=== PATIENT | female | born 1940 | race Caucasian/White ===

== ENCOUNTER → 2017-04-30 | Outpatient (CLI) | payer MEDICARE ==
--- NOTE | 2017-04-30 13:10 | MM ---
Reason for exam: additional evaluation requested from prior study. Last mammogram was performed 1 year ago. History: Patient is postmenopausal and has history of breast cancer at age 51. Family history of breast cancer in daughter at age 52. Benign MG stereo VAD BX RT of the right breast, March 04, 2015. Lumpectomy of the left breast, 1993. Benign excisional biopsy of the right breast, 1991. Physical Findings: Nurse Summary: 1cm nodule in the right breast at 12-12:30 (nurse cordell). MG 3D Diag Mammo W/Cad EDWIN Bilateral CC and MLO view(s) were taken. Prior study comparison: April 29, 2016, bilateral MG 3d diag mammo w/cad EDWIN. January 15, 2015, mammogram, performed at [facility]. The breast tissue is heterogeneously dense. This may lower the sensitivity of mammography. No suspicious abnormality. Post therapy change on the left breast. No significant new findings when compared with previous films. These results were verbally communicated with the patient and result sheet given to the patient on 04/30/17. ASSESSMENT: Benign, BI-RAD 2 RECOMMENDATION: Routine screening mammogram of both breasts in 1 year.
--- NOTE | 2017-04-30 13:11 | USB ---
Reason for exam: additional evaluation requested from prior study. History: Patient is postmenopausal and has history of breast cancer at age 51. Family history of breast cancer in daughter at age 52. Benign MG stereo VAD BX RT of the right breast, March 04, 2015. Lumpectomy of the left breast, 1993. Benign excisional biopsy of the right breast, 1991. US Breast Limited RT Right breast ultrasound demonstrates no cystic or solid lesion seen. No sonographic abnormality. No cystic or solid masses. These results were verbally communicated with the patient and result sheet given to the patient on 04/30/17. ASSESSMENT: Negative, BI-RAD 1 RECOMMENDATION: Routine screening mammogram of both breasts in 1 year.
== END | disposition home or self-care (01) ==
LOC: RADMAMWWP 10:33
PROVIDERS: ATTEND Family Medicine
DX: R92.8 Other abnormal and inconclusive findings on diagnostic imaging of breast (principal); Z85.3 Personal history of malignant neoplasm of breast
CPT/HCPCS: 76642; G0204; G0279

== ENCOUNTER 2017-10-30 14:52 | Inpatient (IN) | payer MEDICARE ==
[2017-10-30 18:11] VITALS: BMI 22.2
[2017-10-30] MEDS ORDERED: NALOXONE 0.4 MG/ML 1 ML VIAL IV PRN (18:50)
[2017-10-30] MEDS ORDERED: HEPARIN SODIUM,PORCINE 5,000 UNIT/ML 1 ML VIAL IV ONE (18:54)
[2017-10-30] MEDS ORDERED: HEPARIN SODIUM,PORCINE 5,000 UNIT/ML 1 ML VIAL IV PRN (18:54)
[2017-10-30] MEDS ORDERED: HEPARIN SOD,PORK IN 0.45% NACL 25,000 UNIT in 0.45% NACL 1 500ML.BAG IV SCH (19:00)
--- NOTE | 2017-10-30 19:00 | P.HPIM ---
History of Present Illness 77-year-old pleasant female last started having symptoms of shortness of breath flulike symptoms about a week ago after which she was admitted to [facility] for treatment of influenza pneumonia patient was started on levofloxacin Tamiflu. Patient had elevated leukocytosis WBC count is coming down patient was also on steroids at the time. Patient was doing well until afternoon today patient went into atrial fibrillation. Patient presently doesn' t have any fever chills nausea vomiting patient denied any pressure like sensation palpitation facet of troponin is negative patient is going in and out of atrial fibrillation patient was given 20 mg of Cardizem followed by IV Cardizem drip patient is presently on 15 of Cardizem. Patient will be started on heparin drip. Patient I was having cough still has cough was having yellowish colored sputum at the time now whitish color. Review of Systems REVIEW OF SYSTEMS: CONSTITUTIONAL: No fever, no malaise, no fatigue. HEENT: No recent visual problems or hearing problems. Denied any sore throat. CARDIOVASCULAR: No chest pain, orthopnea, PND, no palpitations, no syncope. PULMONARY: As mentioned in HPI GASTROINTESTINAL: No diarrhea, no nausea, no vomiting, no abdominal pain. Normoactive bowel sounds. NEUROLOGICAL: No headaches, no weakness, no numbness. HEMATOLOGICAL: Denies any bleeding or petechiae. GENITOURINARY: Denies any burning micturition, frequency, or urgency. MUSCULOSKELETAL/RHEUMATOLOGICAL: Denies any joint pain, swelling, or any muscle pain. ENDOCRINE: Denies any polyuria or polydipsia. The rest of the 14-point review of systems is negative. Past Medical History Past Medical History: Asthma, Cancer, Hypertension, Pneumonia Additional Past Medical History / Comment(s): breast, 1994-chemo and radiation- lumpectomy. pneumonia 2016. Crohn's disease History of Any Multi-Drug Resistant Organisms: None Reported Past Surgical History: Hysterectomy, Tonsillectomy Additional Past Surgical History / Comment(s): lumpectomy Past Anesthesia/Blood Transfusion Reactions: Previous Problems w/ Anesthesia, Motion Sickness, Postoperative Nausea & Vomiting (PONV) Past Psychological History: No Psychological Hx Reported Smoking Status: Never smoker - Past Family History Father History Unknown: Yes Family Medical History: Myocardial Infarction (MD), Vascular Disorder Mother Family Medical History: Cancer Additional Family Medical History / Comment(s): of lung cancer Brother(s) Family Medical History: Cancer Additional Family Medical History / Comment(s): brother of lung cancer Sister(s) Additional Family Medical History / Comment(s): 3 sisters are healthy Medications and Allergies Home Medications Medication Instructions Recorded Confirmed Type Albuterol Inhaler [Ventolin Hfa 1 - 2 puff INHALATION Q6HR PRN 10/30/17 History Inhaler] Aspirin [Adult Low Dose Aspirin EC] 81 mg PO DAILY 10/30/17 10/30/17 History Beclomethasone Dipropionate [Qvar 1 puff INHALATION Q6HR PRN 10/30/17 10/30/17 History 80 mcg] Calcium Carbonate [Calcium] 1,200 mg PO DAILY 10/30/17 10/30/17 History Cholecalciferol [Vitamin D3] 1,000 unit PO DAILY 10/30/17 10/30/17 History Fluticasone Nasal [place] [Flonase 1 spray EA NOSTRIL DAILY 10/30/17 10/30/17 History Nasal [place]] L.acidoph,Paracasei, B.lactis 1 each PO BID 10/30/17 10/30/17 History [Probiotic] Levothyroxine Sodium [Synthroid] 75 mcg PO DAILY 10/30/17 10/30/17 History Lisinopril [Prinivil] 5 mg PO DAILY 10/30/17 10/30/17 History Omeprazole [PriLOSEC] 20 mg PO AC-BRKFST 10/30/17 10/30/17 History rOPINIRole HCL [Requip] 2 tab PO HS 10/30/17 10/30/17 History Allergies Allergy/AdvReac Type Severity Reaction Status Date / Time cefuroxime [From Ceftin] Allergy Rash/Hives Verified 10/30/17 17:48 Penicillins Allergy Anaphylaxis Verified 10/30/17 17:48 Physical Exam Vitals: Vital Signs Temp Pulse Resp BP Pulse Ox 10/30/17 17:45 99.0 F 92 18 134/63 95 10/30/17 17:30 99.0 F 88 18 134/63 95 Intake and Output 10/30/17 10/30/17 10/30/17 06:59 14:59 22:59 Other: Weight 53.5 kg PHYSICAL EXAMINATION: GENERAL: The patient is alert and oriented x3, not in any acute distress. Thin built HEENT: Pupils are round and equally reacting to light. EOMI. No scleral icterus. No conjunctival pallor. Normocephalic, atraumatic. No pharyngeal erythema. No thyromegaly. CARDIOVASCULAR: S1 and S2 present. No murmurs, rubs, or gallops. Sure whether patient has elevated JVD PULMONARY: Patient does have bronchospasm sounds predominantly in the right side decreased air entry into bilateral lung meza. ABDOMEN: Soft, nontender, nondistended, normoactive bowel sounds. No palpable organomegaly. MUSCULOSKELETAL: No joint swelling or deformity. EXTREMITIES: No cyanosis, clubbing, or pedal edema. NEUROLOGICAL: Gross neurological examination did not reveal any focal deficits. SKIN: No rashes. Thrombosis Risk Factor Assmnt - Choose All That Apply Each Factor Represents 1 point: History of: Other Risk Factors: Yes Each Risk Factor Represents 3 Points: Age 75 years or older Thrombosis Risk Factor Assessment Total Risk Factor Score: 4 Thrombosis Risk Factor Assessment Level: Moderate Risk Assessment and Plan Plan: -Atrial fibrillation with rapid ventricular rate: Patient was started on IV Cardizem, will be started on IV heparin as well. Echocardiogram will be obtain cardiology was consulted. 2 more troponins will be obtained -Sepsis secondary to influenza pneumonia which appeared to be improving -Acute hypoxic respiratory failure secondary to pneumonia which is also improving -Gastro-esophageal reflux disease -Hyperlipidemia -Hypertension: Hold off on TRINH inhibitor since patient is on Cardizem and expected to have blood pressure to go down. -Patient will need GI prophylaxis -Patient will not require any other DVT prophylaxis as patient is on IV heparin for atrial fibrillation -CODE STATUS full code
[2017-10-30] MEDS: DILTIAZEM 50 MG in SODIUM CHLORIDE 0.9% 40 ML IV SCH ×2 (19:30→22:50)
[2017-10-30] MEDS: BUDESONIDE 1 MG/2 ML NEBU INHALATION SCH (19:37)
[2017-10-30] MEDS: OSELTAMIVIR 75 MG CAP PO SCH (19:48)
[2017-10-30 19:57] LABS: HCT 34.6 % (34.0-46.0); HGB 10.8 gm/dL (11.4-16.0); MCH 28.5 pg (25.0-35.0); MCHC 31.2 g/dL (31.0-37.0); MCV 91.5 fL (80.0-100.0); Mean Platelet Volume 8.8; Platelet Count 269 k/uL (150-450); RBC 3.78 m/uL (3.80-5.40); RDW 14.3 % (11.5-15.5); WBC 12.3 k/uL (3.8-10.6)
[2017-10-30 20:02] LABS: INR 0.9 (<1.2)
[2017-10-30 20:03] LABS: Partial Thromboplastin Time 23.6 sec (22.0-30.0); Prothrombin Time 9.4 sec (9.0-12.0)
[2017-10-30 20:12] LABS: Lymphocytes # (M) 3.57 k/uL (1.0-4.8); Metamyelocytes # (M) 0.12 k/uL (0); Metamyelocytes % 1 %; Monocytes # (M) 0.12 k/uL (0-1.0); Neutrophils # (M) 8.49 k/uL (1.3-7.7); Neutrophils % (M) 69 %; Nucleated Red Blood Cells 0 /100 WBC (0-0); Total Cells Counted 100
[2017-10-31] MEDS: ALBUTEROL NEBULIZED 2.5 MG/3 ML INHALATION PRN ×4 (02:27→19:41)
[2017-10-31] MEDS: DILTIAZEM 50 MG in SODIUM CHLORIDE 0.9% 40 ML IV SCH ×3 (03:29→08:55)
[2017-10-31] MEDS: PANTOPRAZOLE 40 MG TABLET PO SCH (06:08)
--- NOTE | 2017-10-31 06:33 | XR ---
EXAMINATION TYPE: XR chest 1V DATE OF EXAM: 10/31/2017 HISTORY: CHF. REFERENCE: NONE. FINDINGS: The heart is mildly enlarged. There is mild vascular congestion without theresa edema. There is bilateral upper lobe airspace disease. There is a small left effusion. I suspect underlying COPD. IMPRESSION: 1. CARDIOMEGALY AND VASCULAR CONGESTION. 2. UPPER LOBE AIRSPACE DISEASE PRESENT BILATERALLY, WORSE ON THE RIGHT THAN THE LEFT. 3. I SUSPECT UNDERLYING COPD. 4. SMALL LEFT EFFUSION.
[2017-10-31 06:37] LABS: Prothrombin Time 10.1 sec (9.0-12.0)
[2017-10-31 06:43] LABS: Calcium 9.5 mg/dL (8.4-10.2); Magnesium 1.6 mg/dL (1.6-2.3); Potassium 3.8 mmol/L (3.5-5.1)
[2017-10-31 06:51] LABS: HCT 29.6 % (34.0-46.0); HGB 9.6 gm/dL (11.4-16.0); MCH 29.3 pg (25.0-35.0); MCHC 32.4 g/dL (31.0-37.0); MCV 90.2 fL (80.0-100.0); Mean Platelet Volume 8.9; Platelet Count 340 k/uL (150-450); RBC 3.28 m/uL (3.80-5.40); RDW 14.2 % (11.5-15.5); WBC 12.1 k/uL (3.8-10.6)
[2017-10-31 07:28] LABS: Band Neutrophils % 2 %; Lymphocytes # (M) 2.06 k/uL (1.0-4.8); Monocytes # (M) 1.69 k/uL (0-1.0); Myelocytes # (M) 0.36 k/uL (0); Myelocytes % 3 %; Neutrophils % (M) 65 %; Nucleated Red Blood Cells 0 /100 WBC (0-0); Total Cells Counted 200
[2017-10-31] MEDS: BUDESONIDE 1 MG/2 ML NEBU INHALATION SCH ×2 (08:43→19:39)
[2017-10-31] MEDS ORDERED: RIVAROXABAN 20 MG TAB PO ONE (09:15)
--- NOTE | 2017-10-31 09:18 | CONS ---
CONSULTATION Mrs. Matos is a 77-year-old female with a known history of hypertension, who a week ago started complaining of progressive dyspnea and cough. She was subsequently admitted to [facility] with influenza B and possible pneumonia. She was treated but yesterday had atrial fibrillation and subsequently transferred to [facility]. She is back in sinus mechanism at this time. The patient did not feel any significant palpitations at that time. She was having a cough and fever. She is starting to feel better. She has no chest discomfort. She had some peripheral edema while in the hospital, but not on a regular basis. She is active physically without any difficulty on a regular basis. She denies any prior history of ischemic heart disease of congestive heart failure. She has no history of PND, orthopnea, or peripheral edema. No dizziness or syncope. She had an episode of arrhythmia according to her about 2 years ago in the setting of pneumonia, although details of that arrhythmia is not clear to me. She had a CT scan of the chest that showed a no evidence of pulmonary embolism. Her coronary risk factors are positive for history of hypertension. She is non diabetic. Nonsmoker. No documented history of hyperlipidemia. MEDICATION: At home included lisinopril 5 mg daily, Prilosec, Ventolin, calcium carbonate, fluticasone, aspirin, levothyroxine 0.075 mg daily, ropinirole. REVIEW OF SYSTEMS: Respiratory system: She has a history of asthma and recent pneumonia. GI system : No recent GI bleeding. No peptic ulcer disease. She has history of ulcerative colitis. system: No dysuria, hematuria. Nervous system: No history of stroke or seizure. PHYSICAL EXAMINATION: 77-year-old female, alert, oriented, in no apparent distress. Blood pressure 127/60 with a heart rate in the 80s. HEAD: Normocephalic. Eyes sclerae anicteric. Neck good upstroke. No bruit. Lungs with few crackles noted bilaterally. HEART: Regular rate and rhythm S1, S2. No S3. No rub. ABDOMEN: Soft, nontender. No organomegaly. EXTREMITIES: No edema. LAB DATA: Revealed a hemoglobin of 9.6, BUN and creatinine of 13 and 0.7. Her troponin 0.043, 0.037. Her NT proBNP 3050. Her TSH is 4.07. Her EKG revealed a sinus mechanism with rare PVCs, normal axis, intervals, poor progression. IMPRESSION: 1. Pneumonia with influenza B. 2. Paroxysmal fibrillation, back in sinus mechanism. 3. History of hypertension. 4. Mild elevation of troponin, most likely reflecting a type 2 event. RECOMMENDATION: From the cardiac standpoint, I will stop her IV Cardizem and her IV heparin. I will switch her to oral Cardizem and anticoagulation. An echocardiogram with Doppler will be obtained. It is very likely that her atrial fibrillation is precipitated by her primary pulmonary event. Down the road, after recovery, she may improve benefit from further cardiac workup including a stress test at this time. We will continue on the present therapy. Thank you for this consult. We will follow with you. MMODL / IJN: [id number] / ELLI
[2017-10-31] MEDS: LEVOTHYROXINE 75 MCG TAB PO SCH (09:57)
[2017-10-31] MEDS: DILTIAZEM ORAL 30 MG TAB PO SCH ×3 (09:57→20:05)
[2017-10-31] MEDS: OSELTAMIVIR 75 MG CAP PO SCH ×2 (09:58→20:06)
[2017-10-31] MEDS ORDERED: Magnesium Replacement Protocol 1 EACH MISC MISCELLANE PRN (10:27)
[2017-10-31] MEDS: MAGNESIUM SULFATE-D5W PMX 1 GM in DEXTROSE/WATER 1 100ML.BAG IVPB SCH ×2 (12:11→13:07)
--- NOTE | 2017-10-31 14:06 | P.PN ---
Subjective 77-year-old female is being treated for influenza pneumonia, atrial fibrillation new onset, his BNP had BNP is elevated but cardiology doesn't believe patient has CHF at this time patient diffuse infiltrate is probably due to inflammation from influenza and it is a pneumonia bilateral much worse in the right side patient is on Tamiflu but not any other antibiotics patient was switched to oral anticoagulation and would Cardizem IV Cardizem and IV anti- correlation were discontinued. Pending echocardiogram mildly elevated troponin secondary to atrial fibrillation. And failed patient is feeling much better today. Constitutional: Denied any fatigue denied any fever. Cardio vascular: denied any chest pain, palpitations Gastrointestinal denied any nausea vomiting Pulmonary: Denied any shortness of breath cough Neurologic denied any new focal deficits Objective - Vital Signs Vital signs: Vital Signs Temp 98.2 F 10/31/17 12:11 Pulse 80 10/31/17 12:11 Resp 16 10/31/17 12:11 BP 166/75 10/31/17 12:11 Pulse Ox 94 L 10/31/17 12:11 Intake & Output 10/30/17 10/31/17 10/31/17 18:59 06:59 18:59 Intake Total 122.521 337.747 Output Total 100 Balance 122.521 237.747 Weight 53.5 kg 54.8 kg Intake: Intake, IV Titration 122.521 127.747 Amount Diltiazem 50 mg In Sodium 39.917 27.167 Chloride 0.9% 40 ml @ 15 MG/HR 15 mls/hr IV . Q3H20M MARI Rx#:[id number] Heparin Sod,Pork in 0.45% 82.604 100.58 NaCl 25,000 unit In 0.45 % NaCl 1 500ml.bag @ 12 UNITS/KG/HR 12.84 mls/hr IV .Q24H MARI Rx#: [id number] Oral 210 Output: Urine 100 Other: Voiding Method Toilet Toilet Toilet # Voids 2 # Bowel Movements 1 - Exam PHYSICAL EXAMINATION: GENERAL: The patient is alert and oriented x3, not in any acute distress. Thin built HEENT: Pupils are round and equally reacting to light. EOMI. No scleral icterus. No conjunctival pallor. Normocephalic, atraumatic. No pharyngeal erythema. No thyromegaly. CARDIOVASCULAR: S1 and S2 present. No murmurs, rubs, or gallops. no JVD PULMONARY: Patient does have bronchospasm sounds predominantly in the right side decreased air entry into bilateral lung meza. ABDOMEN: Soft, nontender, nondistended, normoactive bowel sounds. No palpable organomegaly. MUSCULOSKELETAL: No joint swelling or deformity. EXTREMITIES: No cyanosis, clubbing, or pedal edema. NEUROLOGICAL: Gross neurological examination did not reveal any focal deficits. SKIN: No rashes. - Labs CBC & Chem 7: 10/31/17 05:56 10/31/17 05:56 Labs: Abnormal Lab Results - Last 24 Hours (Table) 10/30/17 10/30/17 10/31/17 Range/Units 19:23 19:23 01:32 WBC 12.3 H (3.8-10.6) k/uL RBC 3.78 L (3.80-5.40) m/uL Hgb 10.8 L (11.4-16.0) gm/dL Hct (34.0-46.0) % Neutrophils # (Manual) 8.49 H (1.3-7.7) k/uL Monocytes # (Manual) (0-1.0) k/uL Metamyelocytes # (Man) 0.12 H (0) k/uL Myelocytes # (Manual) (0) k/uL APTT (22.0-30.0) sec Troponin I 0.043 H* 0.037 H* (0.000-0.034) ng/mL 10/31/17 10/31/17 Range/Units 01:32 05:56 WBC 12.1 H (3.8-10.6) k/uL RBC 3.28 L (3.80-5.40) m/uL Hgb 9.6 L (11.4-16.0) gm/dL Hct 29.6 L (34.0-46.0) % Neutrophils # (Manual) 8.10 H (1.3-7.7) k/uL Monocytes # (Manual) 1.69 H (0-1.0) k/uL Metamyelocytes # (Man) (0) k/uL Myelocytes # (Manual) 0.36 H (0) k/uL APTT 47.0 H (22.0-30.0) sec Troponin I (0.000-0.034) ng/mL Assessment and Plan Plan: -Atrial fibrillation with rapid ventricular rate: Patient is on oral Cardizem and oral anticoagulation -Sepsis secondary to influenza pneumonia which appeared to be improving -Acute hypoxic respiratory failure secondary to influenza pneumonia which is also improving -Gastro-esophageal reflux disease -Hyperlipidemia -Hypertension: Patient will be resumed on TRINH inhibitor and will continue Cardizem -Patient will need GI prophylaxis -Patient will not require any other DVT prophylaxis as patient is on IV heparin for atrial fibrillation -CODE STATUS full code
[2017-10-31] MEDS: sulfaSALAzine 500 MG TAB PO SCH (20:10)
[2017-11-01 05:59] LABS: HGB 9.3 gm/dL (11.4-16.0); MCH 28.9 pg (25.0-35.0); MCHC 32.1 g/dL (31.0-37.0); MCV 89.9 fL (80.0-100.0); Mean Platelet Volume 8.6; Platelet Count 372 k/uL (150-450); RBC 3.23 m/uL (3.80-5.40); RDW 14.1 % (11.5-15.5); WBC 9.6 k/uL (3.8-10.6)
[2017-11-01 06:15] LABS: Calcium 9.5 mg/dL (8.4-10.2); Potassium 3.9 mmol/L (3.5-5.1)
[2017-11-01] MEDS: LEVOTHYROXINE 75 MCG TAB PO SCH (06:36)
[2017-11-01] MEDS: PANTOPRAZOLE 40 MG TABLET PO SCH (06:36)
[2017-11-01 07:01] LABS: Band Neutrophils % 3 %; Eosinophils # (M) 0.29 k/uL (0-0.7); Lymphocytes # (M) 3.17 k/uL (1.0-4.8); Metamyelocytes # (M) 0.29 k/uL (0); Metamyelocytes % 3 %; Monocytes # (M) 0.96 k/uL (0-1.0); Myelocytes % 1 %; Neutrophils % (M) 49 %; Nucleated Red Blood Cells 0 /100 WBC (0-0); Total Cells Counted 200
[2017-11-01 07:02] LABS: Large Platelets Present; Polychromasia Present
[2017-11-01 07:03] LABS: Anisocytosis (M) Present
[2017-11-01 07:08] LABS: Poikilocytosis (M) Present
[2017-11-01] MEDS: BUDESONIDE 1 MG/2 ML NEBU INHALATION SCH (07:37)
[2017-11-01] MEDS: ALBUTEROL NEBULIZED 2.5 MG/3 ML INHALATION PRN ×2 (07:37→12:58)
[2017-11-01] MEDS: OSELTAMIVIR 75 MG CAP PO SCH (08:02)
[2017-11-01] MEDS: sulfaSALAzine 500 MG TAB PO SCH (08:03)
[2017-11-01] MEDS: DILTIAZEM ORAL 30 MG TAB PO SCH (08:04)
[2017-11-01 08:21] VITALS: TEMP 97.6
[2017-11-01] MEDS ORDERED: LISINOPRIL 5 MG TAB PO SCH (09:00)
--- NOTE | 2017-11-01 09:45 | ECHOF ---
Referral Reason:A. Fib MEASUREMENTS -------- HEIGHT: 154.9 cm WEIGHT: 53.1 kg BP: 171/70 RVIDd: 3.0 cm (< 3.3) IVSd: 1.0 cm (0.6 - 1.1) LVIDd: 3.2 cm (3.9 - 5.3) LVPWd: 0.9 cm (0.6 - 1.1) IVSs: 1.4 cm LVIDs: 2.1 cm LVPWs: 1.5 cm LA Diam: 2.8 cm (2.7 - 3.8) LAESV Index (A-L): 16.08 ml/m Ao Diam: 2.7 cm (2.0 - 3.7) AV Cusp: 1.8 cm (1.5 - 2.6) MV EXCURSION: 20.022 mm (> 18.000) MV EF SLOPE: 111 mm/s (70 - 150) EPSS: 0.1 cm MV E Pasha: 0.63 m/s MV DecT: 194 ms MV A Pasha: 1.03 m/s MV E/A Ratio: 0.61 RAP: 5.00 mmHg RVSP: 37.39 mmHg FINDINGS -------- Resting tachycardia (HR>100bpm). This was a technically good study. The left ventricular size is normal. Left ventricular wall thickness is normal. Overall left vent ricular systolic function is normal with, an EF between 60 - 65 %. The right ventricle is normal in size. Normal LA size by volume 22+/-6 ml/m2. The right atrium is normal in size. There is mild aortic valve sclerosis. The mitral valve leaflets are mildly thickened. Mild mitral annular calcification present. There is trace mitral regurgitation. Mild tricuspid regurgitation present. There is mild pulmonary hypertension. The right ventricular systolic pressure, as measured by Doppler, is 37.39mmHg. Trace/mild (physiologic) pulmonic regurgitation. The aortic root size is normal. Normal inferior vena cava with normal inspiratory collapse consistent with estimated right atrial pre ssure of 5 mmHg. There is a small, generalized pericardial effusion present. CONCLUSIONS -------- 1. Resting tachycardia (HR>100bpm). 2. This was a technically good study. 3. The left ventricular size is normal. 4. Left ventricular wall thickness is normal. 5. Overall left ventricular systolic function is normal with, an EF between 60 - 65 %. 6. The right ventricle is normal in size. 7. Normal LA size by volume 22+/-6 ml/m2. 8. The right atrium is normal in size. 9. There is mild aortic valve sclerosis. 10. The mitral valve leaflets are mildly thickened. 11. Mild mitral annular calcification present. 12. There is trace mitral regurgitation. 13. Mild tricuspid regurgitation present. 14. There is mild pulmonary hypertension. 15. The right ventricular systolic pressure, as measured by Doppler, is 37.39mmHg. 16. Trace/mild (physiologic) pulmonic regurgitation. 17. The aortic root size is normal. 18. Normal inferior vena cava with normal inspiratory collapse consistent with estimated right atrial pressure of 5 mmHg. 19. There is a small, generalized pericardial effusion present. PERSONAL COMPANION: Chel Cuello RDCS
--- NOTE | 2017-11-01 12:17 | P.PN ---
Subjective Progress Note Date: 11/01/17 Principal diagnosis: Pneumonia and influenza B This is a pleasant 77-year-old female who is currently undergoing a treatment here for influenza B and possible pneumonia. Cardiology consultation was initially requested because the patient had gone into atrial fibrillation. Today she is remaining in a normal sinus rhythm. She was seen and examined this morning sitting up in the chair at bedside. Continues to have productive cough but overall feeling significantly better. She was initiated on Xarelto for anticoagulation, we will check to see if the patient has coverage. Blood pressure 158/60 with a heart rate in the 70s to 80s, afebrile. Objective - Vital Signs Vital signs: Vital Signs Temp 97.6 F 11/01/17 08:00 Pulse 106 H 11/01/17 08:00 Resp 19 11/01/17 08:00 BP 159/65 11/01/17 08:00 Pulse Ox 94 L 11/01/17 08:00 Intake & Output 10/31/17 11/01/17 11/01/17 18:59 06:59 18:59 Intake Total 337.747 360 Output Total 800 Balance -462.253 360 Weight 53.1 kg Intake: Intake, IV Titration 127.747 Amount Diltiazem 50 mg In Sodium 27.167 Chloride 0.9% 40 ml @ 15 MG/HR 15 mls/hr IV . Q3H20M MARI Rx#:[id number] Heparin Sod,Pork in 0.45% 100.58 NaCl 25,000 unit In 0.45 % NaCl 1 500ml.bag @ 12 UNITS/KG/HR 12.84 mls/hr IV .Q24H MARI Rx#: [id number] Oral 210 360 Output: Urine 800 Other: Voiding Method Toilet Toilet # Voids 3 1 # Bowel Movements 1 - Exam PHYSICAL EXAMINATION: HEENT: Head is atraumatic, normocephalic. Pupils equal, round. Neck is supple. There is no elevated jugular venous pressure. HEART EXAMINATION: Heart S1, S2 normal. No murmur or gallop heard. CHEST EXAMINATION: Lungs are clear to auscultation and precussion. No chest wall tenderness is noted on palpation or with deep breathing. ABDOMEN: Soft, nontender. Bowel sounds are heard. No organomegaly noted. EXTREMITIES: 2+ peripheral pulses with no evidence of peripheral edema and no calf tenderness noted. NEUROLOGIC patient is awake, alert and oriented -3. . - Labs CBC & Chem 7: 11/01/17 05:19 11/01/17 05:19 Labs: Abnormal Lab Results - Last 24 Hours (Table) 11/01/17 Range/Units 05:19 RBC 3.23 L (3.80-5.40) m/uL Hgb 9.3 L (11.4-16.0) gm/dL Hct 29.0 L (34.0-46.0) % Metamyelocytes # (Man) 0.29 H (0) k/uL Myelocytes # (Manual) 0.10 H (0) k/uL Assessment and Plan Plan: Assessment and plan #1 pneumonia and influenza be #2 paroxysmal atrial fibrillation, remaining in normal sinus rhythm #3 history of hypertension #4 mild abnormality in troponin, likely reflecting a type II SC Plan Echocardiogram with Doppler study was performed which revealed a normal left ventricular systolic function, patient does have small pericardial effusion noted. We will continue her current medications including xarelto, and check to make sure that the patient has coverage. Once she is discharged home from the hospital, follow-up appointment will be made with Dr. Will in the office 3 weeks post discharge. DNP note has been reviewed, I agree with a documented findings and plan of care. Patient was seen and examined.
[2017-11-01 13:32] VITALS: BP 130/61; PULSE 103; RESP 18
[2017-11-01] MEDS ORDERED: Potassium Replacement Protocol 1 EACH MISC MISCELLANE PRN (13:48)
--- NOTE | 2017-11-01 15:49 | P.DS ---
Providers Date of admission: 10/30/17 17:42 Expected date of discharge: 11/01/17 Attending physician: Inez Rush Consults: 10/30/17 18:52 Consult Physician Routine Consulting Provider: Anahi Will Consult Reason/Comments: New onset A. Fib Do you want consulting provider notified?: Yes Primary care physician: Porfirio Llanes Hospital Course: Final Diagnoses: -Paroxysmal Atrial fibrillation with rapid ventricular rate, converted to sinus rhythm -Sepsis secondary to influenza B pneumonia,improving -Acute hypoxic respiratory failure secondary to influenza pneumonia, resolved -Gastro-esophageal reflux disease -Hyperlipidemia -Hypertension: -Mild elevated troponin, secondary to atrial fibrillation Hospital course:77-year-old female is being treated for influenza pneumonia, atrial fibrillation new onset, BNP is elevated but cardiology doesn't believe patient has CHF at this time. diffuse infiltrate is probably due to inflammation from influenza and it is a pneumonia bilateral much worse in the right side patient is on Tamiflu but not any other antibiotics. Evaluated by cardiology. patient was switched to oral anticoagulation. Cardizem IV converted to oral. Echocardiogram reporting normal LV function, EF 60-65%, mild pulmonary hypertension, mildly elevated troponin secondary to atrial fibrillation. Cleared by cardiology for discharge. Patient is being discharged home in a stable condition with current prognosis. PHYSICAL EXAMINATION: GENERAL: VSS, alert and oriented x3, not in any acute distress. CARDIOVASCULAR: S1 and S2 present. No murmurs, rubs, or gallops. no JVD PULMONARY: Rhoncherous right side decreased air entry into bilateral lung meza. ABDOMEN: Soft, nontender, nondistended, normoactive bowel sounds. No palpable organomegaly. NEUROLOGICAL: Gross neurological examination did not reveal any focal deficits. The impression and plan of care has been dictated as directed. : I performed a history and examination of this patient, discussed the same with the dictator. I agree with the dictator's note ,documented as a scribe. Any additional findings or plans will be noted. Time taken: 35 minutes Patient Condition at Discharge: Stable Plan - Discharge Summary Discharge Rx Participant: Yes New Discharge Prescriptions: New Diltiazem Oral [Cardizem*] 30 mg PO TID #90 tab Rivaroxaban [Xarelto] 20 mg PO W/SUPPER tab Oseltamivir [Tamiflu] 75 mg PO Q12HR #6 cap Doxycycline Monohydrate [Monodox] 100 mg PO BID 3 Days #6 cap Apixaban [Eliquis] 5 mg PO BID #60 tab Continue Omeprazole [PriLOSEC] 20 mg PO AC-BRKFST Albuterol Inhaler [Ventolin Hfa Inhaler] 1 - 2 puff INHALATION RT-Q6H PRN PRN Reason: shortness of breath L.acidoph,Paracasei, B.lactis [Probiotic] 1 cap PO SUWE Calcium Carbonate [Calcium] 1,200 mg PO DAILY Fluticasone Nasal [place] [Flonase Nasal [place]] 1 spray EA NOSTRIL DAILY Aspirin [Adult Low Dose Aspirin EC] 81 mg PO DAILY Levothyroxine Sodium [Synthroid] 75 mcg PO DAILY Cholecalciferol [Vitamin D3] 1,000 unit PO DAILY rOPINIRole HCL [Requip] 2 mg PO HS Beclomethasone Dipropionate [Qvar 80 mcg] 1 puff INHALATION RT-DAILY Lisinopril [Prinivil] 5 mg PO DAILY sulfaSALAzine [Azulfidine] 1,000 mg PO BID Discharge Medication List Albuterol Inhaler [Ventolin Hfa Inhaler] 1 - 2 puff INHALATION RT-Q6H PRN [History] Aspirin [Adult Low Dose Aspirin EC] 81 mg PO DAILY 10/30/17 [History] Beclomethasone Dipropionate [Qvar 80 mcg] 1 puff INHALATION RT-DAILY 10/30/17 [ History] Calcium Carbonate [Calcium] 1,200 mg PO DAILY 10/30/17 [History] Cholecalciferol [Vitamin D3] 1,000 unit PO DAILY 10/30/17 [History] Fluticasone Nasal [place] [Flonase Nasal [place]] 1 spray EA NOSTRIL DAILY 10/30/17 [History] L.acidoph,Paracasei, B.lactis [Probiotic] 1 cap PO SUWE 10/30/17 [History] Levothyroxine Sodium [Synthroid] 75 mcg PO DAILY 10/30/17 [History] Lisinopril [Prinivil] 5 mg PO DAILY 10/30/17 [History] Omeprazole [PriLOSEC] 20 mg PO AC-BRKFST 10/30/17 [History] rOPINIRole HCL [Requip] 2 mg PO HS 10/30/17 [History] sulfaSALAzine [Azulfidine] 1,000 mg PO BID 10/31/17 [History] Apixaban [Eliquis] 5 mg PO BID #60 tab 11/01/17 [Rx] Diltiazem Oral [Cardizem*] 30 mg PO TID #90 tab 11/01/17 [Rx] Doxycycline Monohydrate [Monodox] 100 mg PO BID 3 Days #6 cap 11/01/17 [Rx] Oseltamivir [Tamiflu] 75 mg PO Q12HR #6 cap 11/01/17 [Rx] Rivaroxaban [Xarelto] 20 mg PO W/SUPPER tab 11/01/17 [Rx] Follow up Appointment(s)/Referral(s): Anahi Will MD [STAFF PHYSICIAN] - 3 Weeks (Office to call patient with follow up.) Porfirio Llanes MD [Primary Care Provider] - 11/05/17 1:30 pm (At [facility] Ambulatory/Diagnostic Orders: Complete Blood Count w/diff [LAB.AMB] Time Frame: 3 Days, Location: Determined By Patient Patient Instructions/Handouts: A-fib (Atrial Fibrillation) (DC), Influenza (DC) , Safe Use of Anticoagulants (DC) Activity/Diet/Wound Care/Special Instructions: Eliquis - free 30 day in [facility] Discharge Disposition: HOME SELF-CARE
[2017-11-01] MEDS ORDERED: RIVAROXABAN 20 MG TAB PO SCH (17:30)
[2017-11-01] MEDS ORDERED: APIXABAN 5 MG TAB PO SCH (21:00)
== END 2017-11-01 14:57 | disposition home or self-care (01) | DRG 280 ==
LOC: 6SEL 17:42
PROVIDERS: ADMIT Internal Medicine; ATTEND Internal Medicine
DX: I48.0 Paroxysmal atrial fibrillation (principal); A41.89 Other specified sepsis; I21.A1 Myocardial infarction type 2; J10.08 Influenza due to other identified influenza virus with other specified pneumonia; J12.89 Other viral pneumonia; J96.01 Acute respiratory failure with hypoxia; K50.90 Crohn's disease, unspecified, without complications; E03.9 Hypothyroidism, unspecified; Z79.890 Hormone replacement therapy; E78.5 Hyperlipidemia, unspecified; I10 Essential (primary) hypertension; I27.20 Pulmonary hypertension, unspecified; J45.909 Unspecified asthma, uncomplicated; K21.9 Gastro-esophageal reflux disease without esophagitis; Z79.82 Long term (current) use of aspirin; Z79.899 Other long term (current) drug therapy; Z80.1 Family history of malignant neoplasm of trachea, bronchus and lung; Z82.49 Family history of ischemic heart disease and other diseases of the circulatory system; Z87.01 Personal history of pneumonia (recurrent); Z90.710 Acquired absence of both cervix and uterus; Z79.51 Long term (current) use of inhaled steroids; Z88.1 Allergy status to other antibiotic agents; Z88.0 Allergy status to penicillin; R77.8 Other specified abnormalities of plasma proteins; Z92.21 Personal history of antineoplastic chemotherapy; Z92.3 Personal history of irradiation; Z85.3 Personal history of malignant neoplasm of breast
CPT/HCPCS: 71045; 80048; 83735; 83880; 84443; 84484; 85025; 85610; 85730; 93306; 94640

== ENCOUNTER → 2018-03-08 | Outpatient (CLI) | payer MEDICARE ==
[~2018-03-08] MED LIST: DOBUTamine DRIP for NUC MED 500 MG in DEXTROSE/WATER 1 250ML.BAG IV ONE
--- NOTE | 2018-03-08 12:35 | ECHOS ---
STRESS ECHOCARDIOGRAM DATE OF SERVICE: 03/08/2018 INDICATIONS: Hypertension. MEDICATIONS: BASELINE HEART RATE: 74 BASELINE BLOOD PRESSURE: 154/78 MAXIMUM HEART RATE: 123 MAXIMUM BLOOD PRESSURE: 212/52 85% MPHR: 121 100% MPHR: 142 METS: MAXIMUM STAGE REACHED: TOTAL EXERCISE TIME: CLINICAL INFORMATION: Baseline rhythm is a sinus mechanism, rate of 74, normal axis and intervals, poor R progression. Baseline blood pressure 154/78 mmHg. Patient received infusion of dobutamine per protocol, reaching peak rate of 123 beats per minute which is equal to 86% maximum predicted heart rate. Peak blood pressure 212/52 mmHg. Electrocardiograph monitoring revealed no evidence of diagnostic ischemic ST deviation. Rare PVCs were noted. Baseline echocardiogram revealed normal wall thickness and motion. At peak infusion, there was normal wall thickening and motion. CONCLUSION: 1. Normal electrocardiograph response to dobutamine infusion. 2. Normal stress echocardiogram with no evidence of stress induced ischemia. MMODL / IJN: [id number] /
== END | disposition home or self-care (01) ==
LOC: RADNMMAIN 09:01
PROVIDERS: ATTEND Internal Medicine
DX: I48.91 Unspecified atrial fibrillation (principal); I10 Essential (primary) hypertension
CPT/HCPCS: 93351; J1250

== ENCOUNTER → 2018-07-02 | Outpatient (CLI) | payer MEDICARE ==
--- NOTE | 2018-07-05 07:43 | MM ---
Reason for exam: screening (asymptomatic). Last mammogram was performed 1 year and 2 months ago. History: Patient is postmenopausal and has history of breast cancer at age 51. Family history of breast cancer in daughter at age 52. Benign MG stereo VAD BX RT of the right breast, March 04, 2015. Lumpectomy of the left breast, 1993. Benign excisional biopsy of the right breast, 1991. Physical Findings: A clinical breast exam by your physician is recommended on an annual basis and results should be correlated with mammographic findings. MG 3D Screening Mammo W/Cad Bilateral CC and MLO view(s) were taken. Prior study comparison: April 30, 2017, bilateral MG 3d diag mammo w/cad ED[facility]. April 29, 2016, bilateral MG 3d diag mammo w/cad [facility]WIN. There are scattered fibroglandular densities. Previous mammotome biopsy in the right breast. Post surgical changes left breast. Vascular calcifications on the left. No significant changes when compared with prior studies. ASSESSMENT: Benign, BI-RAD 2 RECOMMENDATION: Routine screening mammogram of both breasts in 1 year.
== END | disposition home or self-care (01) ==
LOC: RADMAMWWP 10:57
PROVIDERS: ATTEND Family Medicine
DX: Z12.31 Encounter for screening mammogram for malignant neoplasm of breast (principal)
CPT/HCPCS: 77063; 77067

== ENCOUNTER → 2020-07-02 | Day surgery (SDC) | payer MEDICARE ==
[2020-06-27 15:04] VITALS: BMI 24.3
[~2020-07-02] MED LIST changes: +CLINDAMYCIN 900 MG in DEXTROSE 5% IN WATER 50 ML IVPB PRN; -DOBUTamine DRIP for NUC MED 500 MG in DEXTROSE/WATER 1 250ML.BAG IV ONE; +LIDOCAINE 1% INJ 10MG/ML (20 ML MDV) ONE; +LIDOCAINE 1% INJ 10MG/ML (20 ML MDV) SQ ONE; +MIDAZOLAM 2 MG/2 ML VIAL IV ONE; +SODIUM CHLORIDE 0.9% 1,000 ML IV SCH
[2020-07-02 07:43] VITALS: BP 193/77; PULSE 90; RESP 18; TEMP 97.9
--- NOTE | 2020-07-02 09:22 | P.EPPROC ---
- EP Procedure Note Electrophysiology Procedure Note: Loop monitor implant Primary physicians: Dr. Llanes Scrum Coach: Dr. Chaudhry Indication: A. fib diagnosis and management, single episode of atrial fibrillation during episode of pneumonitis Patient was brought to the EP lab in a fasting state. Written informed consent was obtained prior to the procedure. The left pectoral area was prepped and draped per protocol. Intravenous antibiotic was administered preoperatively. A subcutaneous Loop monitor was implanted successfully and the wound was closed per protocol. The device was programmed to detect significant rupa- arrhythmic and tachy-arrhythmic events, per protocol. Device and programming details: A. fib protocol Patient underwent EP procedure under conscious sedation/moderate sedation, monitoring of the level of consciousness and physiologic parameters including but not limited to vital signs and oxygenation. Patient tolerated the procedure well without any acute complications. Start time: 912 Stop time: 920
--- NOTE | 2020-07-02 09:24 | P.PRLE ---
RE: Marilee Matos Dear Dr. Mario Alberto Hunt underwent implantation of a loop monitor for A. fib detection and management. She's had an episode of atrial fibrillation during an episode of pneumonia but her routine Holter monitors have not picked up any further atrial fibrillation and hence she is not on any anticoagulation I will keep you posted if we detect any atrial fibrillation that would merit anticoagulation for stroke prevention Thank you for entrusting me with the care of the patient Warm regards Sincerely Xavier Chaudhry
== END | disposition home or self-care (01) ==
LOC: CATHEP 07:23
PROVIDERS: ATTEND Internal Medicine Clinical Cardiac Electrophysiology
DX: I48.91 Unspecified atrial fibrillation (principal); I49.3 Ventricular premature depolarization; Z79.82 Long term (current) use of aspirin; Z79.899 Other long term (current) drug therapy; Z79.890 Hormone replacement therapy; Z79.51 Long term (current) use of inhaled steroids; Z88.1 Allergy status to other antibiotic agents; Z88.0 Allergy status to penicillin
CPT/HCPCS: 33285; C1764; J2250; J2001

== ENCOUNTER 2023-04-29 07:41 | Day surgery (SDC) | payer MEDICARE ==
[~2023-04-29 07:41] MED LIST changes: -CLINDAMYCIN 900 MG in DEXTROSE 5% IN WATER 50 ML IVPB PRN; +HYDROmorphone 0.5 MG/0.5 ML SYRINGE IVP PRN; -LIDOCAINE 1% INJ 10MG/ML (20 ML MDV) ONE; -LIDOCAINE 1% INJ 10MG/ML (20 ML MDV) SQ ONE; -MIDAZOLAM 2 MG/2 ML VIAL IV ONE; +MIDAZOLAM 2 MG/2 ML VIAL IV PRN; -SODIUM CHLORIDE 0.9% 1,000 ML IV SCH
[2023-04-29] MEDS ORDERED: SODIUM CHLORIDE 0.9% 1,000 ML IV ONE ×2 (08:10→11:24)
[2023-04-29 08:46] LABS: African American GFR (CKD) 49 (>60 ml/min/1.73 sqM); Anion Gap 13 mmol/L; Blood Urea Nitrogen 19 mg/dL (7-17); Calcium 9.8 mg/dL (8.4-10.2); Carbon Dioxide 20 mmol/L (22-30); Chloride 106 mmol/L (98-107); Glucose 107 mg/dL (74-99); Non-African American GFR(CKD) 43 (>60 ml/min/1.73 sqM); Potassium 4.3 mmol/L (3.5-5.1); Sodium 139 mmol/L (137-145)
[2023-04-29 08:57] LABS: Basophils # (A) 0.1 k/uL (0-0.2); Basophils % (A) 1 %; Eosinophils # (A) 0.1 k/uL (0-0.7); Eosinophils % (A) 1 %; HCT 48.9 % (34.0-46.0); HGB 15.6 gm/dL (11.4-16.0); Lymphocytes # (A) 1.9 k/uL (1.0-4.8); Lymphocytes % (A) 22 %; MCH 31.3 pg (25.0-35.0); MCHC 31.8 g/dL (31.0-37.0); MCV 98.1 fL (80.0-100.0); Mean Platelet Volume 8.5; Monocytes # (A) 0.5 k/uL (0-1.0); Monocytes % (A) 6 %; Neutrophils # (A) 5.8 k/uL (1.3-7.7); Neutrophils % (A) 68 %; Platelet Count 248 k/uL (150-450); RBC 4.98 m/uL (3.80-5.40); RDW 13.4 % (11.5-15.5); WBC 8.6 k/uL (3.8-10.6)
[2023-04-29] MEDS ORDERED: SUCCINYLCHOLINE CHLORIDE 200 MG/10 ML VIAL IV ONE (09:39)
[2023-04-29] MEDS ORDERED: DEXAMETHASONE SOD PHOSPHATE 4 MG/ML 1 ML VIAL ONE (09:39)
[2023-04-29] MEDS ORDERED: fentaNYL (PF) 50 MCG/ML 2 ML AMP ONE (09:39)
[2023-04-29] MEDS ORDERED: PHENYLEPHRINE-0.9% NACL SYG 1,000 MCG/10 ML SYRINGE ONE (09:39)
[2023-04-29] MEDS ORDERED: ATROPINE SULFATE 0.1 MG/ML 10ML SYRINGE ONE (09:39)
[2023-04-29] MEDS ORDERED: ONDANSETRON 4 MG/2 ML VIAL ONE (09:39)
[2023-04-29] MEDS ORDERED: PROPOFOL 10 MG/ML 20 ML VIAL IV ONE (09:39)
[2023-04-29] MEDS ORDERED: HEPARIN SODIUM,PORCINE 10,000 UNIT/ML 1 ML VIAL ONE (09:39)
[2023-04-29] MEDS ORDERED: ROCURONIUM 10 MG/ML (5 ML VIAL) IV ONE (09:39)
[2023-04-29] MEDS ORDERED: LIDOCAINE 1% INJ 10MG/ML (20 ML MDV) ONE ×2 (09:39→09:58)
[2023-04-29] MEDS ORDERED: LIDOCAINE 1% INJ 10MG/ML (20 ML MDV) SQ ONE (10:19)
[2023-04-29] MEDS ORDERED: IOPAMIDOL-370 100ML BTL INJ ONE ×2 (10:25→12:06)
[2023-04-29] MEDS ORDERED: HEPARIN SOD,PORK IN 0.45% NACL 25,000 UNIT in 0.45% NACL 1 250ML.BAG IV ONE (10:48)
[2023-04-29] MEDS ORDERED: ACETAMINOPHEN TAB 325 MG TAB PO PRN (12:42)
--- NOTE | 2023-04-29 12:51 | P.EPPROC ---
- EP Procedure Note Electrophysiology Procedure Note: PROCEDURE A. fib ablation/PVI DIAGNOSIS Paroxysmal Atrial fibrillation, symptomatic, refractory to therapy Underlying sick sinus syndrome, intolerance to drugs RESULT No left atrial appendage mass seen on intracardiac echo, thickened pericardium with executive effusion the base of the LV and left atrium Successful A. 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 Patient brought to the EP lab. General anesthesia given. Heparin administered. A city maintained above 300 seconds Both groins prepped and draped per protocol and venous sheaths placed. Esophagus intubated, circa catheter for temperature monitoring an endoscope for possible esophageal deflection. Phrenic nerve monitoring performed. Esophageal temperature monitoring perfor med. Esophageal deflection performed if circa catheter overlapping with the balloon or circa temperature less than 27.5C Intracardiac echocardiography performed. Pericardium evaluated. Left atrial appendage evaluated. Left atrium evaluated along with pulmonary veins Left femoral venous access obtained 2. The guidewire would not cross the left iliac vein. Left iliac vein venogram performed Chronically occluded vein noted with extensive collaterals from the right side Access sites sealed with Vascade. 3 venous accesses then obtained from the right femoral vein Transseptal catheterization performed under fluoroscopic guidance and intracardiac echo guidance Cryoablation sheath exchanged, balloon catheter along with achieve catheter placed in the left atrium. Pulmonary veins isolated in the following sequence: Left superior pulmonary vein followed by left inferior pulmonary vein, followed by right inferior pulmonary vein and lastly right superior pulmonary vein. Phrenic nerve stimulation along with capture thresholds within the SVC and right superior pulmonary vein to identify the phrenic nerve proximity to the cryo- balloon. Pulmonary veins isolated and confirmed with entrance and exit block. Phrenic nerve integrity confirmed at the end of the procedure Diagnostic catheters for the high right atrium, His bundle, coronary sinus placed. LA and RA pressures recorded RA pressure: 05/20/6 LA pressure: 04/04/5 Diagnostic EP study with coronary sinus pacing and recording Baseline measurements: When necessary 136 ms, QRS 103 ms, QT 391 ms, sinus cycle length 1101 ms AH 82 and HV 52 ms Sinus node recovery times were 894, 894 and 1952 ms AV node Wenckebach block 440 ms VA Wenckebach block 550 ms Gemma response to Parahisian pacing IV atropine infused 1 mg Burst stimulation performed on and off drugs from the high right atrium. No inducible atrial fibrillation Venous sheaths were removed and hemostasis assured with a closure device. Patient extubated and transferred to recovery PROCEDURES PERFORMED Diagnostic EP study CS pacing and recording Left and right transseptal catheterization Catheter the mapping of the tachycardia Intracardiac echocardiography Pulmonary vein isolation with transseptal and comprehensive EPS, [id number] Drug infusion, +[id number]
--- NOTE | 2023-04-29 12:55 | P.EPPROC ---
- EP Procedure Note Electrophysiology Procedure Note: Kristina Hunt underwent pulmonary vein isolation for management of recurrent atrial f ibrillation Intracardiac echo revealed normal LV systolic function with evidence of chronic pericarditis with a small effusive exudate in the base of the left ventricle, posterior to the left atrium and also around the right ventricle Her pericarditis has definitely contributed to the recent worsening of atrial fibrillation She also has a chronically occluded left iliac vein with extensive collaterals from the right side. It is quite likely she may have had a DVT many years back She is asymptomatic from this The procedure was successfully performed access obtained from the right femoral vein She will continue xarelto 15 mg by mouth daily as before along with the other antihypertensive medications Following intubation she appeared to have yellowish secretions in the bronchus that represent infective bronchitis. She has not had any fever but I will treat her with oral antibiotics and saline inhalers/nebulizers She tolerated the procedure as well as general anesthesia quite well without any complications Thank you for entrusting me with the care of the patient Warm regards Sincerely Xavier Chaudhry
--- NOTE | 2023-04-29 12:58 | P.HPCAR ---
History of Present Illness This is Dr. Chaudhry dictating an H/P on this patient The patient was interviewed and examined IMPRESSION / ASSESSMENT: Paroxysmal atrial fibrillation with RVR Intolerance to beta blockers and flecainide Hypertension PLAN: Proceed with A. fib ablation, continue antihypertensive therapy and anticoagulation HPI Patient has not had any fever chills cough or expectoration last few weeks She has not had any syncopal spell or chest discomfort when she is stable from a cardiac vascular standpoint, able to lie flat comfortably ROS: No fever chills or rigors, no cough, phlegm or expectoration, no nausea, vomiting or diarrhea, no hematuria, dysuria, no musculoskeletal complaints, no strokes or seizures, no skin lesions. EXAMINATION: Elevated blood pressure upon admission Normal heart rates regular Breath sounds are clear no rhonchi no crackles Normal heart sounds normal S1 normal S2 Apical systolic murmur REVIEW OF LABS, ECG & MEDICAL DATA Normal white count 8.6 thousand Hemoglobin 15.6, normal Normal electrolytes BUN 19 and creatinine 1.29 TSH normal at 2.9 Physical Exam Vitals: Vital Signs Temp Pulse Resp BP Pulse Ox 04/29/23 08:17 98.0 F 96 16 199/79 98 Intake and Output 04/28/23 04/29/23 04/29/23 22:59 06:59 14:59 Intake Total 1060 Balance 1060 Intake: IV 1060 Other: Weight 56.3 kg Past Medical History Past Medical History: Atrial Fibrillation, Asthma, Cancer, GERD/Reflux, Hyperlipidemia, Hypertension, Pneumonia, Thyroid Disorder Additional Past Medical History / Comment(s): See Dr Chaudhry's H&P, L breast cancer with chemo/radiation and lumpectomy with lymph node removals, pneumonia 2016. Crohn's disease. RLS History of Any Multi-Drug Resistant Organisms: None Reported Past Surgical History: Breast Surgery, Hysterectomy, Tonsillectomy Additional Past Surgical History / Comment(s): lt lumpectomy with lymph nodes removed. parathyroid removed 2018 Past Anesthesia/Blood Transfusion Reactions: Motion Sickness, Postoperative Nausea & Vomiting (PONV) Additional Past Anesthesia/Blood Transfusion Reaction / Comment(s): 2 sisters have PONV Smoking Status: Never smoker - Past Family History Father History Unknown: Yes Family Medical History: Myocardial Infarction ([place]), Vascular Disorder Additional Family Medical History / Comment(s): Father had mi at age 78yrs. Mother Family Medical History: Cancer Additional Family Medical History / Comment(s): of lung cancer Brother(s) Family Medical History: Cancer Additional Family Medical History / Comment(s): brother of lung cancer Sister(s) Family Medical History: Coronary Artery Disease (CAD), Myocardial Infarction ([place]) Additional Family Medical History / Comment(s): One sister with FL at age of 76yrs. Physical Examination Vital Signs Temp Pulse Resp BP Pulse Ox 04/29/23 08:17 98.0 F 96 16 199/79 98 Intake and Output 04/28/23 04/29/23 04/29/23 22:59 06:59 14:59 Intake Total 1060 Balance 1060 Intake: IV 1060 Other: Weight 56.3 kg Results 04/29/23 08:10 04/29/23 08:10 CBC 04/29/23 Range/Units 08:10 WBC 8.6 (3.8-10.6) k/uL RBC 4.98 (3.80-5.40) m/uL Hgb 15.6 (11.4-16.0) gm/dL Hct 48.9 H (34.0-46.0) % Plt Count 248 (150-450) k/uL Comprehensive Metabolic Panel 04/29/23 Range/Units 08:10 Sodium 139 (137-145) mmol/L Potassium 4.3 (3.5-5.1) mmol/L Chloride 106 (98-107) mmol/L Carbon Dioxide 20 L (22-30) mmol/L BUN 19 H (7-17) mg/dL Creatinine 1.18 H (0.52-1.04) mg/dL Glucose 107 H (74-99) mg/dL Calcium 9.8 (8.4-10.2) mg/dL Current Medications Generic Name Dose Route Start Last Admin Trade Name Freq PRN Reason Stop Dose Admin Acetaminophen 650 mg 04/29/23 12:42 Acetaminophen Tab 325 Mg Tab PO 05/29/23 12:43 Q6HR PRN Mild Pain (Scale 1 to 3) Amlodipine Besylate 5 mg 04/30/23 09:00 Amlodipine 5 Mg Tab PO 05/30/23 09:01 QAM [facility] Azithromycin 500 mg 04/29/23 12:45 Azithromycin 500 Mg Tab PO 05/01/23 09:01 DAILY [facility] Protocol Hydromorphone HCl 0.5 mg 04/29/23 07:00 Hydromorphone 0.5 Mg/0.5 Ml Syringe IVP 04/29/23 23:00 Q5M PRN Phase 1 or 2 - Pain Control Sodium Chloride 1,000 mls @ 20 mls/hr 04/29/23 05:43 Saline 0.9% IV 05/29/23 05:44 .Q24H MARI Lactated Ringer's 1,000 mls @ 20 mls/hr 04/29/23 05:43 Lactated Ringers IV 05/29/23 05:44 .Q24H MARI Acetaminophen 1,000 mg/ IV 100 mls @ 400 mls/hr 04/29/23 12:42 Solution IVPB 04/29/23 12:56 ONCE ONE Levothyroxine Sodium 50 mcg 04/30/23 09:00 Levothyroxine 75 Mcg Tab PO 05/30/23 09[facility]01 [facility] Lisinopril 40 mg 04/30/23 09:00 Lisinopril 5 Mg Tab PO 05/30/23 09:01 [facility] Midazolam HCl 2 mg 04/29/23 07:00 Midazolam 2 Mg/2 Ml Vial IV 04/29/23 23:00 ONCE PRN Pre-Op Anxiety Non-Formulary Medication 20 mg 04/30/23 07:30 Omeprazole PO 05/30/23 07:31 AC-BRKFST [facility] Pravastatin Sodium 20 mg 04/30/23 09:00 Pravastatin Sodium 20 Mg Tab PO 05/30/23 09:01 [facility] Rivaroxaban 15 mg 04/29/23 21:00 Rivaroxaban 15 Mg Tab PO 05/29/23 21:01 [facility] Protocol Sodium Chloride 12 ml 04/29/23 12:42 Sodium Chloride 0.9% Flush 10 Ml Syringe IV 05/29/23 12:43 Q12HR PRN Line Flush Sulfasalazine 500 mg 04/29/23 21:00 Sulfasalazine 500 Mg Tab PO 08/06/23 21:01 BID [facility] Protocol Intake and Output 04/28/23 04/29/23 04/29/23 22:59 06:59 14:59 Intake Total 1060 Balance 1060 Intake: IV 1060 Other: Weight 56.3 kg Patient Weight 04/30/23 06:59 Weight 56.3 kg 04/29/23 08:10 04/29/23 08:10
[2023-04-29] MEDS ORDERED: ACETAMINOPHEN IV (For NPO) 1,000 MG in EMPTY BAG 1 BAG IVPB ONE (14:30)
[2023-04-29] MEDS: SODIUM CHLORIDE 0.9% 1,000 ML IV SCH (14:58)
[2023-04-29] MEDS: LACTATED RINGERS 1,000 ML IV SCH (14:58)
[2023-04-29] MEDS: AZITHROMYCIN 500 MG TAB PO SCH (15:04)
[2023-04-29] MEDS: SODIUM CHLORIDE 0.9% NEBULIZ 3 ML INHALATION SCH ×2 (17:33→20:15)
[2023-04-29] MEDS: sulfaSALAzine 500 MG TAB PO SCH (20:55)
[2023-04-29] MEDS ORDERED: RIVAROXABAN 15 MG TAB PO SCH (21:00)
[2023-04-30] MEDS: LACTATED RINGERS 1,000 ML IV SCH (05:54)
[2023-04-30] MEDS: SODIUM CHLORIDE 0.9% 1,000 ML IV SCH (05:54)
[2023-04-30] MEDS ORDERED: LEVOTHYROXINE 50 MCG TAB PO SCH (06:30)
[2023-04-30] MEDS ORDERED: PANTOPRAZOLE 40 MG TABLET PO SCH (07:30)
[2023-04-30] MEDS: SODIUM CHLORIDE 0.9% NEBULIZ 3 ML INHALATION SCH ×2 (08:31→11:39)
[2023-04-30 08:36] VITALS: RESP 20
[2023-04-30] MEDS: sulfaSALAzine 500 MG TAB PO SCH (08:45)
[2023-04-30] MEDS: AZITHROMYCIN 500 MG TAB PO SCH (08:46)
[2023-04-30] MEDS ORDERED: amLODIPine 5 MG TAB PO SCH (09:00)
[2023-04-30] MEDS ORDERED: PRAVASTATIN SODIUM 20 MG TAB PO SCH (09:00)
[2023-04-30] MEDS ORDERED: lisinopriL 20 MG TAB PO SCH (09:00)
--- NOTE | 2023-04-30 10:21 | P.DS ---
Providers Attending physician: Xavier Chaudhry Primary care physician: [facility] Course: Patient is an 83-year-old female who underwent A. fib ablation with PVI. Patient is doing well post procedure with no immediate complications. Per Dr. Chaudhry, patient was having yellow sputum production that required suctioning during procedure. Patient will be discharged home with antibiotics per Dr. Chaudhry. Please see EMR for further hospital course details. Discharge Diagnosis Paroxysmal Atrial fibrillation, symptomatic, refractory to therapy Underlying sick sinus syndrome, intolerance to drugs Nurse practitioner note has been reviewed by physician. Signing provider agrees with the documented findings, assessment, and plan of care. Plan - Discharge Summary Discharge Rx Participant: No New Discharge Prescriptions: New Levofloxacin [Levaquin] 500 mg PO DAILY 7 Days #1 tab Continue Omeprazole [PriLOSEC] 20 mg PO AC-BRKFST Albuterol Inhaler [Ventolin Hfa Inhaler] 1 - 2 puff INHALATION RT-Q6H PRN PRN Reason: shortness of breath L.acidoph,Paracasei, B.lactis [Probiotic] 1 cap PO Q72H Levothyroxine Sodium [Synthroid] 50 mcg PO QAM Cholecalciferol [Vitamin D3 (25 Mcg = 1000 Iu)] 5,000 unit PO QAM rOPINIRole HCL [Requip] 2 mg PO HS Beclomethasone Dipropionate [Qvar 80 mcg] 1 puff INHALATION BID sulfaSALAzine [Azulfidine] 500 mg PO BID Zolpidem [Ambien] 5 mg PO HS PRN PRN Reason: Insomnia ALPRAZolam [Xanax] 0.25 mg PO DAILY PRN PRN Reason: Anxiety Multivitamins, Thera [Multivitamin (formulary)] 1 tab PO QAM lisinopriL [Zestril] 40 mg PO QAM Folic Acid 1 mg PO QAM Rivaroxaban [Xarelto] 15 mg PO HS amLODIPine [Norvasc] 5 mg PO QAM Beeproplis 1 cap PO QAM Hyoscyamine Sulfate [Levsin] 0.125 mg PO TID Pravastatin Sodium [Pravachol] 20 mg PO QAM Digoxin [Lanoxin] 125 mcg PO QAM Discharge Medication List Albuterol Inhaler [Ventolin Hfa Inhaler] 1 - 2 puff INHALATION RT-Q6H PRN 10/30/17 [History] Beclomethasone Dipropionate [Qvar 80 mcg] 1 puff INHALATION BID 10/30/17 [History] Cholecalciferol [Vitamin D3 (25 Mcg = 1000 Iu)] 5,000 unit PO QAM 10/30/17 [History] L.acidoph,Paracasei, B.lactis [Probiotic] 1 cap PO Q72H 10/30/17 [History] Levothyroxine Sodium [Synthroid] 50 mcg PO QAM 10/30/17 [History] Omeprazole [PriLOSEC] 20 mg PO AC-BRKFST 10/30/17 [History] rOPINIRole HCL [Requip] 2 mg PO HS 10/30/17 [History] sulfaSALAzine [Azulfidine] 500 mg PO BID 10/31/17 [History] ALPRAZolam [Xanax] 0.25 mg PO DAILY PRN 06/27/20 [History] Folic Acid 1 mg PO QAM 06/27/20 [History] Multivitamins, Thera [Multivitamin (formulary)] 1 tab PO QAM 06/27/20 [History] Zolpidem [Ambien] 5 mg PO HS PRN 06/27/20 [History] lisinopriL [Zestril] 40 mg PO QAM 06/27/20 [History] Beeproplis 1 cap PO QAM 04/26/23 [History] Digoxin [Lanoxin] 125 mcg PO QAM 04/26/23 [History] Hyoscyamine Sulfate [Levsin] 0.125 mg PO TID 04/26/23 [History] Pravastatin Sodium [Pravachol] 20 mg PO QAM 04/26/23 [History] Rivaroxaban [Xarelto] 15 mg PO HS 04/26/23 [History] amLODIPine [Norvasc] 5 mg PO QAM 04/26/23 [History] Levofloxacin [Levaquin] 500 mg PO DAILY 7 Days #1 tab 04/30/23 [Rx] Follow up Appointment(s)/Referral(s): Xavier Chaudhry MD [STAFF PHYSICIAN] - 1 Week
[2023-04-30 12:13] VITALS: BP 164/72; PULSE 89; TEMP 97.8
== END 2023-04-30 13:03 | disposition home or self-care (01) ==
LOC: CATHEP 07:41 → 6NMEDSUR 14:04 → CATHEP 04-30 13:03
PROVIDERS: ATTEND Internal Medicine Clinical Cardiac Electrophysiology
DX: I48.0 Paroxysmal atrial fibrillation (principal); G25.81 Restless legs syndrome; I10 Essential (primary) hypertension; J45.909 Unspecified asthma, uncomplicated; K21.9 Gastro-esophageal reflux disease without esophagitis; Z85.3 Personal history of malignant neoplasm of breast; Z79.01 Long term (current) use of anticoagulants; Z79.899 Other long term (current) drug therapy
CPT/HCPCS: 94640 ×3; 93662; 93656; 86900; 86901; 80048; 84443; 85025; 86850; C1894 ×2; C1769 ×3; C1760; C1730 ×2; C1759; C1893; C1733; C1766; J0330; J1644 ×2; J1100; J2405; J2001; J0461; J3010; J0131; J2704; Q9967; J2371